=== PATIENT | female | born 1975 | race African-American/Black ===

== ENCOUNTER 2016-07-31 18:35 | Emergency (ER) | payer MEDICAID ==
[~2016-07-31] VITALS: Ht 167.6 cm; Wt 65.0 kg
[~2016-07-31 18:35] MED LIST: ALBUTEROL
[2016-07-31] MEDS ORDERED: SODIUM CHLORIDE 0.9% 1,000 ML IV ONE (18:38)
[2016-07-31] MEDS ORDERED: METHYLPREDNISOLONE SOD SUCC 125 MG/2 ML VIAL IV ONE (18:45)
[2016-07-31] MEDS ORDERED: IPRATROPIUM/ALBUTEROL 0.5-3(2.5)MG/3ML NEB HHN ONE ×2 (18:45→20:30)
[2016-07-31] MEDS ORDERED: IPRATROPIUM/ALBUTEROL 0.5-3(2.5)MG/3ML NEB ONE (18:51)
[2016-07-31 19:38] LABS: BASOPHILS % 1.1 % (0.0-2.0); EOSINOPHILS % 7.8 % (0.0-5.0); HEMATOCRIT. 43.2 % (36.0-48.0); HEMOGLOBIN. 14.7 g/dL (12.0-16.0); LYMPHOCYTES % 30.8 % (20.0-50.0); MEAN CORPUSCULAR HEMOGLOBIN 31.4 pg (28.0-32.0); MEAN CORPUSCULAR VOLUME 92.1 fL (81.0-99.0); MEAN PLATELET VOLUME 7.9 fl (7.4-10.4); MONOCYTES % 6.7 % (2.0-8.0); NEUTROPHILS % 53.6 % (40.0-76.0); PLATELET 327 x1000/uL (130-400); RED BLOOD CELL COUNT 4.69 mill/uL (4.2-5.4); RED CELL DISTRIBUTION WIDTH 13.6 % (11.6-14.6)
[2016-07-31 19:43] LABS: INR 1.1; PARTIAL THROMBOPLASTIN TIME 41.5 sec (24.0-34.0); PROTHROMBIN TIME 10.9 sec
[2016-07-31 19:51] LABS: CARBON DIOXIDE 20 mEq/L (21-32); CHLORIDE 111 mEq/L (98-107); TROPONIN I < 0.02 ng/mL (0.00-0.04)
[2016-07-31 22:12] VITALS: BP 140/80
== END 2016-07-31 22:30 | disposition home or self-care (01) ==
LOC: ER 18:35
DX: J45.901 Unspecified asthma with (acute) exacerbation (principal); D72.1 Eosinophilia; Z87.891 Personal history of nicotine dependence; Z88.0 Allergy status to penicillin; Z91.013 Allergy to seafood; Z98.890 Other specified postprocedural states
CPT/HCPCS: 36415; 71010; 80053; 83690; 84484; 85025; 85610; 85730; 93005; 94640; 96374; 99285; J2930; J7030; J7620

== ENCOUNTER 2016-08-03 14:20 | Emergency (ER) | payer MEDICAID ==
[~2016-08-03] VITALS: Ht 157.5 cm; Wt 52.0 kg
[2016-08-03] MEDS: KETOROLAC 60MG/2ML VIAL IM ONE ×2 (18:57→19:12)
[2016-08-03 19:12] VITALS: BP 162/94
[2016-08-03] MEDS ORDERED: KETOROLAC 60MG/2ML VIAL IM ONE (19:15)
== END 2016-08-03 19:13 | disposition home or self-care (01) ==
LOC: ER 17:46
DX: M54.5 Low back pain (principal); R03.0 Elevated blood-pressure reading, without diagnosis of hypertension; J45.909 Unspecified asthma, uncomplicated; Z88.0 Allergy status to penicillin; Z91.013 Allergy to seafood
CPT/HCPCS: 72100; 81025; 96372; 99284; J1885

== ENCOUNTER 2016-08-19 07:56 | Inpatient (IN) | payer MEDICAID ==
[~2016-08-19] VITALS: Ht 165.1 cm; Wt 51.3 kg
[2016-08-19] MEDS ORDERED: METHYLPREDNISOLONE SOD SUCC 125 MG/2 ML VIAL IV STA (08:31)
[2016-08-19] MEDS ORDERED: ALBUTEROL (0.083%) 2.5MG/3ML NEB HHN STA (08:31)
[2016-08-19] MEDS ORDERED: IPRATROPIUM BROMIDE (0.02%) 0.5MG/2.5ML NEB HHN STA (08:31)
[2016-08-19] MEDS ORDERED: IPRATROPIUM/ALBUTEROL 0.5-3(2.5)MG/3ML NEB HHN ONE (13:00)
[2016-08-19] MEDS ORDERED: MAGNESIUM/ALUMINUM HYDROXIDE/SIMETHICONE 30ML UDC PO PRN (13:30)
[2016-08-19] MEDS ORDERED: ONDANSETRON HCL 4MG/2ML VIAL IV PRN (13:30)
[2016-08-19] MEDS ORDERED: GUAIFENESIN 200MG/10ML SUGAR FREE UDC PO PRN (13:30)
[2016-08-19] MEDS ORDERED: ACETAMINOPHEN 325MG TABLET PO PRN (13:30)
[2016-08-19] MEDS ORDERED: CLONIDINE 0.1MG TABLET PO PRN (13:30)
[2016-08-19 14:40] VITALS: BP 121/91
[2016-08-19 16:45] VITALS: BP 100/76
[2016-08-19 16:50] LABS: HEMATOCRIT 41.4 % (36.0-48.0); MEAN CORPUSCULAR HEMOGLOBIN 31.3 pg (28.0-32.0); MEAN CORPUSCULAR VOLUME 92.2 fL (81.0-99.0); PLATELET 340 x1000/uL (130-400); RED BLOOD CELL COUNT 4.49 mill/uL (4.2-5.4); RED CELL DISTRIBUTION WIDTH 13.8 % (11.6-14.6)
[2016-08-19 17:10] LABS: CARBON DIOXIDE 24 mEq/L (21-32); CHLORIDE 105 mEq/L (98-107); CREATINE KINASE 59 IU/L (26-192); TROPONIN I < 0.02 ng/mL (0.00-0.04)
[2016-08-19] MEDS: AZITHROMYCIN 500 MG TABLET PO SCH (18:10)
[2016-08-19] MEDS: METHYLPREDNISOLONE SOD SUCC 40 MG/ML VIAL IV SCH (18:10)
[2016-08-19 20:00] VITALS: BP 116/86
[2016-08-19] MEDS ORDERED: ENOXAPARIN 40MG/0.4ML SYR SUBCUT SCH (20:00)
[2016-08-19 23:13] LABS: CLARITY URINE SL HAZY (CLEAR); COLOR URINE YELLOW (YELLOW); GLUCOSE URINE 2+ (NEGATIVE); KETONES URINE TRACE (NEGATIVE); LEUKOCYTE ESTERASE URINE 1+ (NEGATIVE); NITRITE URINE NEGATIVE (NEGATIVE); OCCULT BLOOD URINE NEGATIVE (NEGATIVE); PROTEIN URINE NEGATIVE (NEGATIVE); SPECIFIC GRAVITY URINE 1.025 (1.005-1.030); UROBILINOGEN URINE 0.2 E.U./dL (0.2-1.0)
[2016-08-19 23:22] LABS: *AMPHETAMINES SCREEN URINE NEGATIVE (NEGATIVE); *BARBITURATES SCREEN URINE NEGATIVE (NEGATIVE); *BENZODIAZEPINES SCREEN URINE NEGATIVE (NEGATIVE); *COCAINE SCREEN URINE NEGATIVE (NEGATIVE); METHADONE URINE SCREEN NEGATIVE (NEGATIVE); OPIATES URINE SCREEN NEGATIVE (NEGATIVE); PHENCYCLIDINE URINE SCREEN NEGATIVE (NEGATIVE)
[2016-08-19 23:23] LABS: CANNABINOID URINE SCREEN PRESUMTIVE POSITIVE (NEGATIVE)
[2016-08-20] VITALS: BP 102/72
[2016-08-20] MEDS: IPRATROPIUM/ALBUTEROL 0.5-3(2.5)MG/3ML NEB INH SCH ×5 (00:09→15:39)
[2016-08-20 00:57] LABS: CREATINE KINASE 64 IU/L (26-192); CREATINE KINASE MB FRACTION 2.3 ng/mL (0.5-3.6); TROPONIN I < 0.02 ng/mL (0.00-0.04)
[2016-08-20] MEDS ORDERED: IPRA3AMP9 INH (01:54)
[2016-08-20] MEDS ORDERED: MONT10TA21 PO (01:54)
[2016-08-20] MEDS ORDERED: QUET25TA PO (01:54)
[2016-08-20] MEDS ORDERED: ALBU2.5V13 IH (01:54)
[2016-08-20] MEDS: METHYLPREDNISOLONE SOD SUCC 40 MG/ML VIAL IV SCH ×2 (02:22→09:01)
[2016-08-20 04:00] VITALS: BP 104/71
[2016-08-20 05:15] LABS: HEMATOCRIT. 40.2 % (36.0-48.0); HEMOGLOBIN. 13.5 g/dL (12.0-16.0); MEAN CORPUSCULAR HEMOGLOBIN 31.2 pg (28.0-32.0); MEAN CORPUSCULAR VOLUME 92.7 fL (81.0-99.0); MEAN PLATELET VOLUME 7.8 fl (7.4-10.4); PLATELET 344 x1000/uL (130-400); RED BLOOD CELL COUNT 4.33 mill/uL (4.2-5.4); RED CELL DISTRIBUTION WIDTH 13.6 % (11.6-14.6)
[2016-08-20 08:00] VITALS: BP 94/57
[2016-08-20] MEDS: AZITHROMYCIN 500 MG TABLET PO SCH (09:01)
[2016-08-20] MEDS ORDERED: LEVOFLOXACIN 500MG TABLET PO SCH (12:00)
[2016-08-20] MEDS ORDERED: METH4TAB17 PO (12:04)
[2016-08-20 12:44] VITALS: BP 94/57
[2016-08-20 14:33] LABS: PLATELET ESTIMATE NORMAL
== END 2016-08-20 16:12 | disposition home or self-care (01) | DRG 133 ==
LOC: ER 08:13 → 7WST 12:54 → ENRESERV 13:03 → CANRESERV 13:53
PROVIDERS: ADMIT Internal Medicine; ATTEND Internal Medicine
DX: J96.00 Acute respiratory failure, unspecified whether with hypoxia or hypercapnia (principal); J45.902 Unspecified asthma with status asthmaticus; R65.10 Systemic inflammatory response syndrome (SIRS) of non-infectious origin without acute organ dysfunction; Z88.0 Allergy status to penicillin; Z79.899 Other long term (current) drug therapy; Z91.013 Allergy to seafood
CPT/HCPCS: 36415; 71010; 80048; 80061; 80305; 81001; 82550; 82553; 83735; 84443; 84484; 85025; 85027; 87070; 93005; 93970; 94640; 96374; 99291; J2920; J2930; J7611; J7620

== ENCOUNTER 2016-08-27 07:26 | Emergency (ER) | payer MEDICAID ==
[~2016-08-27] VITALS: Ht 157.5 cm; Wt 51.0 kg
[~2016-08-27 07:26] MED LIST changes: +ALBU2.5V13 IH; +IPRA3AMP9 INH; +METH4TAB17 PO; +MONT10TA21 PO; +QUET25TA PO
[2016-08-27 07:36] VITALS: BP 130/95
[2016-08-27] MEDS ORDERED: PREDNISONE 20MG TABLET PO STA (08:20)
[2016-08-27] MEDS ORDERED: IPRATROPIUM/ALBUTEROL 0.5-3(2.5)MG/3ML NEB HHN ONE (08:30)
== END 2016-08-27 10:22 | disposition home or self-care (01) ==
LOC: ER 08:30
DX: J45.901 Unspecified asthma with (acute) exacerbation (principal); Z88.0 Allergy status to penicillin; F12.10 Cannabis abuse, uncomplicated
CPT/HCPCS: 94640; 99283; J7512; J7620

== ENCOUNTER 2016-11-07 19:04 | Emergency (ER) | payer MEDICAID ==
[~2016-11-07] VITALS: Ht 157.5 cm; Wt 50.9 kg
[~2016-11-07 19:04] MED LIST changes: +AZIT250T6 PO; +DUONEB3 ML INH; -IPRA3AMP9 INH
[2016-11-07] MEDS ORDERED: PREDNISONE 20MG TABLET PO STA (19:35)
[2016-11-07] MEDS ORDERED: ALBUTEROL (0.083%) 2.5MG/3ML NEB HHN STA (19:35)
[2016-11-07] MEDS ORDERED: IPRATROPIUM BROMIDE (0.02%) 0.5MG/2.5ML NEB HHN STA (19:35)
[2016-11-07 20:52] VITALS: BP 138/89
[2016-12-21] MEDS ORDERED: P20 PO (10:02)
[2016-12-21] MEDS ORDERED: FLUT1BLS IH (10:02)
[2016-12-21] MEDS ORDERED: ALBU2SYR PO (10:02)
[2016-12-21] MEDS ORDERED: ALBU6.7H INH (10:02)
== END 2016-11-07 21:05 | disposition home or self-care (01) ==
LOC: ER 21:03
DX: J45.901 Unspecified asthma with (acute) exacerbation (principal); R03.0 Elevated blood-pressure reading, without diagnosis of hypertension; Z88.0 Allergy status to penicillin; Z91.013 Allergy to seafood; Z79.51 Long term (current) use of inhaled steroids; Z79.899 Other long term (current) drug therapy
CPT/HCPCS: 94640; 99283; J7512; J7611

== ENCOUNTER 2016-11-27 10:15 | Emergency (ER) | payer MEDICAID ==
[~2016-11-27] VITALS: Ht 157.5 cm; Wt 51.0 kg
[2016-11-27] MEDS ORDERED: IPRATROPIUM BROMIDE (0.02%) 0.5MG/2.5ML NEB HHN STA ×3 (12:40→14:07)
[2016-11-27] MEDS ORDERED: METHYLPREDNISOLONE SOD SUCC 125 MG/2 ML VIAL IV STA (12:40)
[2016-11-27] MEDS ORDERED: PREDNISONE 20MG TABLET PO STA (12:40)
[2016-11-27] MEDS ORDERED: ALBUTEROL (0.083%) 2.5MG/3ML NEB HHN STA ×3 (12:40→14:07)
[2016-11-27] MEDS ORDERED: TERBUTALINE SULFATE 1MG/ML VIAL SUBCUT ONE (14:15)
[2016-11-27] MEDS ORDERED: MAGNESIUM 2 G PREMIX 50 ML IV ONE (14:15)
[2016-11-27 15:00] VITALS: BP 130/83
[2016-11-27] MEDS ORDERED: PREDNISONE 20MG TABLET PO ONE (16:00)
[2016-12-21] MEDS ORDERED: FLUT1BLS IH (10:02)
[2016-12-21] MEDS ORDERED: P20 PO (10:02)
[2016-12-21] MEDS ORDERED: ALBU2SYR PO (10:02)
[2016-12-21] MEDS ORDERED: ALBU6.7H INH (10:02)
== END 2016-11-27 16:47 | disposition home or self-care (01) ==
LOC: ER 11:09
DX: J45.901 Unspecified asthma with (acute) exacerbation (principal); Z88.0 Allergy status to penicillin; Z91.013 Allergy to seafood
CPT/HCPCS: 71010; 93005; 94640; 96365; 96372; 96375; 99284; J2930; J3105; J3475; J7611; 94664

== ENCOUNTER 2016-12-17 08:39 | Emergency (ER) | payer MEDICAID ==
[~2016-12-17] VITALS: Ht 157.5 cm; Wt 51.0 kg
[2016-12-17] MEDS ORDERED: IPRATROPIUM/ALBUTEROL 0.5-3(2.5)MG/3ML NEB HHN ONE (10:45)
[2016-12-17 11:35] LABS: BASOPHILS % 0.8 % (0.0-2.0); LYMPHOCYTES % 15.4 % (20.0-50.0); MEAN CORPUSCULAR HEMOGLOBIN 31.9 pg (28.0-32.0); MEAN CORPUSCULAR VOLUME 92.9 fL (81.0-99.0); MEAN PLATELET VOLUME 7.9 fl (7.4-10.4); MONOCYTES % 3.7 % (2.0-8.0); NEUTROPHILS % 77.1 % (40.0-76.0); PLATELET 303 x1000/uL (130-400); RED BLOOD CELL COUNT 4.09 mill/uL (4.2-5.4); RED CELL DISTRIBUTION WIDTH 13.4 % (11.6-14.6)
[2016-12-17 11:43] LABS: PROTHROMBIN TIME 10.7 sec (9.4-11.6)
[2016-12-17 11:51] LABS: CARBON DIOXIDE 23 mEq/L (21-32); CHLORIDE 108 mEq/L (98-107)
[2016-12-17 11:54] LABS: TROPONIN I < 0.02 ng/mL (0.00-0.04)
[2016-12-17 13:31] LABS: CLARITY URINE CLEAR (CLEAR); COLOR URINE YELLOW (YELLOW); GLUCOSE URINE NEGATIVE (NEGATIVE); KETONES URINE NEGATIVE (NEGATIVE); LEUKOCYTE ESTERASE URINE NEGATIVE (NEGATIVE); NITRITE URINE NEGATIVE (NEGATIVE); OCCULT BLOOD URINE NEGATIVE (NEGATIVE); PH URINE 6.5 (4.5-8.0); PROTEIN URINE NEGATIVE (NEGATIVE); SPECIFIC GRAVITY URINE 1.011 (1.005-1.030); UROBILINOGEN URINE 0.2 E.U./dL (0.2-1.0)
[2016-12-17 13:41] LABS: *AMPHETAMINES SCREEN URINE NEGATIVE (NEGATIVE); *BARBITURATES SCREEN URINE NEGATIVE (NEGATIVE); *BENZODIAZEPINES SCREEN URINE NEGATIVE (NEGATIVE); *COCAINE SCREEN URINE NEGATIVE (NEGATIVE); METHADONE URINE SCREEN NEGATIVE (NEGATIVE); OPIATES URINE SCREEN NEGATIVE (NEGATIVE); PHENCYCLIDINE URINE SCREEN NEGATIVE (NEGATIVE)
[2016-12-17 13:52] LABS: CANNABINOID URINE SCREEN PRESUMTIVE POSITIVE (NEGATIVE)
[2016-12-17] MEDS ORDERED: PREDNISONE 10MG TABLET PO ONE (14:00)
[2016-12-17 14:14] VITALS: BP 133/77
[2016-12-21] MEDS ORDERED: FLUT1BLS IH (10:02)
[2016-12-21] MEDS ORDERED: P20 PO (10:02)
[2016-12-21] MEDS ORDERED: ALBU2SYR PO (10:02)
[2016-12-21] MEDS ORDERED: ALBU6.7H INH (10:02)
== END 2016-12-17 14:15 | disposition home or self-care (01) ==
LOC: ER 08:39
DX: J45.901 Unspecified asthma with (acute) exacerbation (principal); E87.6 Hypokalemia; F12.10 Cannabis abuse, uncomplicated; Z87.440 Personal history of urinary (tract) infections; Z88.0 Allergy status to penicillin; Z91.013 Allergy to seafood
CPT/HCPCS: 36415; 80053; 80305; 81003; 81025; 83036; 83880; 84484; 85025; 85610; 85651; 93005; 94640; 99285; J7620

== ENCOUNTER 2016-12-19 07:02 | Inpatient (IN) | payer MEDICAID ==
[~2016-12-19] VITALS: Ht 157.5 cm; Wt 60.8 kg
[2016-12-19] VITALS (13 sets, daily range): BP systolic 103–142; BP diastolic 56–82
[2016-12-19] MEDS ORDERED: METHYLPREDNISOLONE SOD SUCC 125 MG/2 ML VIAL IV STA (07:09)
[2016-12-19] MEDS ORDERED: ALBUTEROL (0.083%) 2.5MG/3ML NEB HHN STA (07:09)
[2016-12-19] MEDS ORDERED: IPRATROPIUM BROMIDE (0.02%) 0.5MG/2.5ML NEB HHN STA (07:09)
[2016-12-19] MEDS ORDERED: SODIUM CHLORIDE 0.9% 1,000 ML IV ONE (07:10)
[2016-12-19] MEDS ORDERED: EPINEPHRINE 1:1000 1 MG/ML AMP INJ ONE (07:15)
[2016-12-19] MEDS ORDERED: LORAZEPAM 2MG/ML CPJ IV ONE (07:15)
[2016-12-19] MEDS ORDERED: MAGNESIUM 2 G PREMIX 50 ML IV ONE (07:15)
[2016-12-19] MEDS ORDERED: LEVOFLOXACIN 500MG PREMIX 100 ML IV ONE (07:45)
[2016-12-19 08:00] LABS: BASOPHILS % 0.5 % (0.0-2.0); EOSINOPHILS % 3.5 % (0.0-5.0); HEMATOCRIT. 39.7 % (36.0-48.0); HEMOGLOBIN. 13.5 g/dL (12.0-16.0); LYMPHOCYTES % 26.7 % (20.0-50.0); MEAN CORPUSCULAR HEMOGLOBIN 31.8 pg (28.0-32.0); MEAN CORPUSCULAR VOLUME 93.6 fL (81.0-99.0); MEAN PLATELET VOLUME 7.8 fl (7.4-10.4); MONOCYTES % 5.9 % (2.0-8.0); NEUTROPHILS % 63.4 % (40.0-76.0); PLATELET 328 x1000/uL (130-400); RED BLOOD CELL COUNT 4.24 mill/uL (4.2-5.4); RED CELL DISTRIBUTION WIDTH 13.6 % (11.6-14.6)
[2016-12-19] MEDS ORDERED: LIDOCAINE HCL/PF 1% 2ML VIAL ONE (08:01)
[2016-12-19 08:07] LABS: PARTIAL THROMBOPLASTIN TIME 30.8 sec (23.4-31.0); PROTHROMBIN TIME 10.4 sec (9.4-11.6)
[2016-12-19 08:15] LABS: CARBON DIOXIDE 25 mEq/L (21-32); CHLORIDE 108 mEq/L (98-107); TROPONIN I < 0.02 ng/mL (0.00-0.04)
[2016-12-19 08:24] LABS: HCG SCREEN NEGATIVE
[2016-12-19] MEDS ORDERED: CLONIDINE 0.1MG TABLET PO PRN (09:00)
[2016-12-19] MEDS ORDERED: MAGNESIUM/ALUMINUM HYDROXIDE/SIMETHICONE 30ML UDC PO PRN (09:00)
[2016-12-19] MEDS ORDERED: DOCUSATE SODIUM 100MG CAPSULE PO PRN (09:00)
[2016-12-19 09:19] LABS: BG BASE EXCESS -5.3 mmol/L (-2.0-2.0); BG BILEVEL POS AIRWAY PRESSURE 15/5; BG CARBOXYHEMOGLOBIN 0.2 % (0.5-1.5); BG DEOXYHEMOGLOBIN 0.7 % (0.0-5.0); BG FRACTION INSPIRED OXYGEN 50; BG HCO3 ACT 19.3 mmol/L (22.0-26.0); BG METHEMOGLOBIN 0.3 % (0.0-1.5); BG OXYGEN SATURATION 99.3 % (92.0-98.5); BG OXYHEMOGLOBIN 98.8 % (94.0-97.0); BG PCO2 34.8 mmHg (35.0-45.0); BG PH 7.362 (7.350-7.450); BG PO2 212.3 mmHg (75.0-100.0); BG SAMPLE SITE RIGHT BRACHIAL; BG TOTAL HEMOGLOBIN 12.8 g/dL (12.0-18.0); BG VENT MODE MASK - BIPAP
[2016-12-19] MEDS: ENOXAPARIN 40MG/0.4ML SYR SUBCUT SCH (12:02)
[2016-12-19] MEDS: METHYLPREDNISOLONE SOD SUCC 125 MG/2 ML VIAL IV SCH ×3 (12:02→22:40)
[2016-12-19] MEDS: IPRATROPIUM/ALBUTEROL 0.5-3(2.5)MG/3ML NEB INH SCH ×4 (12:29→23:53)
[2016-12-19] MEDS: BUDESONIDE 0.5MG/2ML NEB HHN SCH ×2 (16:08→20:37)
[2016-12-19 16:10] LABS: CLARITY URINE CLEAR (CLEAR); COLOR URINE YELLOW (YELLOW); GLUCOSE URINE 2+ (NEGATIVE); KETONES URINE NEGATIVE (NEGATIVE); LEUKOCYTE ESTERASE URINE NEGATIVE (NEGATIVE); NITRITE URINE NEGATIVE (NEGATIVE); OCCULT BLOOD URINE NEGATIVE (NEGATIVE); PROTEIN URINE TRACE (NEGATIVE); SPECIFIC GRAVITY URINE 1.028 (1.005-1.030); UROBILINOGEN URINE 0.2 E.U./dL (0.2-1.0)
[2016-12-19 16:27] LABS: *BARBITURATES SCREEN URINE NEGATIVE (NEGATIVE); *BENZODIAZEPINES SCREEN URINE NEGATIVE (NEGATIVE); *COCAINE SCREEN URINE NEGATIVE (NEGATIVE); METHADONE URINE SCREEN NEGATIVE (NEGATIVE); PHENCYCLIDINE URINE SCREEN NEGATIVE (NEGATIVE)
[2016-12-19 16:33] LABS: *AMPHETAMINES SCREEN URINE PRESUMTIVE POSITIVE (NEGATIVE); CANNABINOID URINE SCREEN PRESUMTIVE POSITIVE (NEGATIVE); OPIATES URINE SCREEN PRESUMTIVE POSITIVE (NEGATIVE)
[2016-12-19] MEDS: MONTELUKAST SODIUM 10MG TABLET PO SCH (17:25)
[2016-12-19] MEDS: FAMOTIDINE 20MG/2ML VIAL IV SCH (22:40)
[2016-12-20] VITALS (9 sets, daily range): BP systolic 117–140; BP diastolic 63–100
[2016-12-20] MEDS: IPRATROPIUM/ALBUTEROL 0.5-3(2.5)MG/3ML NEB INH SCH ×6 (03:50→23:42)
[2016-12-20 05:57] LABS: HEMATOCRIT. 36.1 % (36.0-48.0); MEAN CORPUSCULAR HEMOGLOBIN 30.9 pg (28.0-32.0); MEAN PLATELET VOLUME 8.2 fl (7.4-10.4); PLATELET 308 x1000/uL (130-400); RED BLOOD CELL COUNT 3.88 mill/uL (4.2-5.4); RED CELL DISTRIBUTION WIDTH 13.4 % (11.6-14.6)
[2016-12-20] MEDS: METHYLPREDNISOLONE SOD SUCC 125 MG/2 ML VIAL IV SCH ×3 (06:15→21:43)
[2016-12-20 06:34] LABS: CARBON DIOXIDE 23 mEq/L (21-32); CHLORIDE 105 mEq/L (98-107); HDL CHOLESTEROL 127 mg/dL (40-59)
[2016-12-20 06:36] LABS: LDL CHOLESTEROL 88 mg/dL (5-100)
[2016-12-20] MEDS: ACETAMINOPHEN 325MG TABLET PO PRN (08:14)
[2016-12-20] MEDS: FAMOTIDINE 20MG/2ML VIAL IV SCH ×2 (08:15→21:43)
[2016-12-20] MEDS: ENOXAPARIN 40MG/0.4ML SYR SUBCUT SCH (08:15)
[2016-12-20] MEDS: BUDESONIDE 0.5MG/2ML NEB HHN SCH ×2 (09:53→20:15)
[2016-12-20 10:31] LABS: PLATELET ESTIMATE NORMAL
[2016-12-20] MEDS: MONTELUKAST SODIUM 10MG TABLET PO SCH (17:03)
[2016-12-20] MEDS ORDERED: DEXTROSE 50% WATER 50ML SYRINGE IV PRN (18:45)
[2016-12-20] MEDS: BLOOD SUGAR DIAGNOSTIC STRIP TEST SCH (19:01)
[2016-12-20] MEDS: INSULIN LISPRO 100 UNITS/ML SUBCUT SCH (19:12)
[2016-12-20] MEDS ORDERED: INSULIN LISPRO 100 UNITS/ML SUBCUT NR (19:15)
[2016-12-21] VITALS (9 sets, daily range): BP systolic 102–136; BP diastolic 52–88
[2016-12-21] MEDS: IPRATROPIUM/ALBUTEROL 0.5-3(2.5)MG/3ML NEB INH SCH ×3 (03:51→12:06)
[2016-12-21] MEDS: METHYLPREDNISOLONE SOD SUCC 125 MG/2 ML VIAL IV SCH ×2 (07:17→13:05)
[2016-12-21] MEDS: BLOOD SUGAR DIAGNOSTIC STRIP TEST SCH ×2 (07:21→12:40)
[2016-12-21] MEDS: INSULIN LISPRO 100 UNITS/ML SUBCUT SCH ×2 (08:00→13:11)
[2016-12-21] MEDS: BUDESONIDE 0.5MG/2ML NEB HHN SCH (08:14)
[2016-12-21] MEDS: FAMOTIDINE 20MG/2ML VIAL IV SCH (08:50)
[2016-12-21] MEDS: ENOXAPARIN 40MG/0.4ML SYR SUBCUT SCH (08:53)
[2016-12-21] MEDS ORDERED: ALBU2SYR PO (10:02)
[2016-12-21] MEDS ORDERED: P20 PO (10:02)
[2016-12-21] MEDS ORDERED: FLUT1BLS IH (10:02)
[2016-12-21] MEDS ORDERED: ALBU6.7H INH (10:02)
[2016-12-21] MEDS: ACETAMINOPHEN 325MG TABLET PO PRN (13:15)
[2016-12-22] MEDS ORDERED: METHYLPREDNISOLONE SOD SUCC 40 MG/ML VIAL IV SCH (09:00)
== END 2016-12-21 16:00 | disposition home or self-care (01) | DRG 133 ==
LOC: ER 07:29 → 5EST 07:40 → ENRESERV 08:49 → EDBEDREQ 09:50 → 5EST 12-21 14:00
PROVIDERS: ADMIT Internal Medicine; ATTEND Internal Medicine
PROC: 5A09357 Assistance with Respiratory Ventilation, Less than 24 Consecutive Hours, Continuous Positive Airway Pressure (ICD-10-PCS; principal; 2016-12-19)
DX: J96.01 Acute respiratory failure with hypoxia (principal); J44.9 Chronic obstructive pulmonary disease, unspecified; J45.901 Unspecified asthma with (acute) exacerbation; I10 Essential (primary) hypertension; E87.6 Hypokalemia; R73.9 Hyperglycemia, unspecified; F12.90 Cannabis use, unspecified, uncomplicated; F17.210 Nicotine dependence, cigarettes, uncomplicated; Z82.49 Family history of ischemic heart disease and other diseases of the circulatory system; Z82.5 Family history of asthma and other chronic lower respiratory diseases; Z98.891 History of uterine scar from previous surgery; Z88.0 Allergy status to penicillin; Z91.013 Allergy to seafood; Z79.899 Other long term (current) drug therapy
CPT/HCPCS: 36415; 36600; 71010; 80053; 80061; 80305; 81001; 82375; 82805; 82962; 83605; 83690; 83880; 84484; 84703; 85025; 85610; 85730; 87040; 87086; 93005; 93970; 94640; 96361; 96365; 96367; 96375; 99291; J0171; J1650; J1815; J1956; J2060; J2930; J3475; J3490; J7030; J7611; J7620; J7626